=== PATIENT | male | born 1970 | race Caucasian/White ===

== ENCOUNTER 2017-03-30 10:52 | Emergency (ER) | payer OTHER ==
--- NOTE | 2017-03-30 13:26 | RAD ---
INDICATION: Left ankle swelling COMPARISON: None TECHNIQUE: 105 noncontrast axial source images were acquired with coronal and sagittal reconstructions FINDINGS: There are no acute osseous findings. There is a tiny, corticated, ossific or calcific density in the anterior soft tissues at the end of the mid leg believed to be incidental or related to an old injury. The articular relationships are maintained. There is mild diffuse soft tissue swelling of the anterior lower leg extending from the mid diaphysis through the ankle mortise. Edema is subcutaneous in location. There is no organized hematoma. There is no localized fluid collection. IMPRESSION: ANTERIOR LOWER EXTREMITY SUBCUTANEOUS EDEMA
--- NOTE | 2017-03-30 14:23 | RAD ---
INDICATION: Red and swollen right leg. Cellulitis. COMPARISON: CT lower extremity same date TECHNIQUE: Duplex interrogation of the right lowerextremity was performed. FINDINGS: Deep veins: The common femoral, great saphenous, profunda femoris, proximal, mid, and distal deep femoral, popliteal, posterior tibial, and peroneal veins are patent. There is normal compressibility, augmentation, and phasic flow. Superficial veins: There are no findings of superficial thrombophlebitis. Popliteal fossa:There is no evidence of a popliteal cyst. Soft tissues:There are no soft tissue abnormalities. IMPRESSION: No evidence of deep venous thrombosis
[2017-03-30 14:42] VITALS: BP 142/65
--- NOTE | 2017-03-30 18:03 | ED ---
Lower Extremity - HPI Summary HPI Summary: Patient presents to the ED with right lower extremity pain, erythema, warmth and was observed to be a deformity. He sustained an injury to the right upper pina 5 days ago and 3 days ago began to have swelling and other symptoms present today. The pain is not discretely located over where he initially incurred the injury. Patient has not been to a PCP for quite some time, so he comes to the ED for evaluation. He was ambulating well immediately following the injury, but is increasingly having a difficult time ambulating due to pain in the right anterior lower leg with involvement into the foot. He denies edema at baseline. Denies fever, sweats, chills. The area to the right lower extremity is exquisitely tender to the touch. - History of Current Complaint Chief Complaint: EDExtremityLower Stated Complaint: RT ANKLE SWELLING Time Seen by Provider: 03/30/17 11:23 Hx Obtained From: Patient Mechanism Of Injury: Direct Blow Onset of Pain: Minutes Onset/Duration: Days Severity Initially: Moderate Severity Currently: Moderate Pain Intensity: 7 Pain Scale Used: 0-10 Numeric Timing: Constant Location: Is Discrete @ - Right anterior lower leg right anterior lower leg Associated Signs And Symptoms: Positive: Swelling, Redness. Negative: Knee Pain Aggravating Factor(s): Standing, Ambulation Alleviating Factor(s): Rest, Elevation Able to Bear Weight: Yes - Risk Factors Gout Risk Factors: Negative DVT Risk Factors: Negative Septic Arthritis Risk Factor: Negative - Allergies/Home Medications Allergies/Adverse Reactions: Allergies Allergy/AdvReac Type Severity Reaction Status Date / Time No Known Allergies Allergy Verified 03/30/17 10:55 PMH/Surg Hx/FS Hx/Imm Hx Previously Healthy: Yes - Immunization History Date of Influenza Vaccine: 11/2016 Immunizations Up to Date: Yes Infectious Disease History: No Infectious Disease History: Denies: Traveled Outside the [place] in Last 30 Days - Social History Alcohol Use: None Substance Use Type: Reports: None Smoking Status (MU): Heavy Every Day Tobacco Smoker Review of Systems Constitutional: Negative Negative: Fever, Chills, Fatigue, Skin Diaphoresis Eyes: Negative Cardiovascular: Negative Respiratory: Negative Genitourinary: Negative Positive: no symptoms reported, see HPI Positive: Arthralgia Positive: Other - erythematous warm right lower extremity with +2 edema and diffuse swelling of the ankle and foot Neurological: Negative Psychological: Normal All Other Systems Reviewed And Are Negative: Yes Physical Exam Triage Information Reviewed: Yes Vital Signs On Initial Exam: Initial Vitals Temp Pulse Resp BP Pulse Ox 98.2 F 73 16 130/110 96 03/30/17 10:55 03/30/17 10:55 03/30/17 10:55 03/30/17 10:55 03/30/17 10:55 Vital Signs Reviewed: Yes Appearance: Positive: Well-Appearing, Well-Nourished Skin: Positive: Warm, Skin Color Reflects Adequate Perfusion, Other - See above Head/Face: Positive: Normal Head/Face Inspection Eyes: Positive: EOMI, VAN, Conjunctiva Clear Respiratory/Lung Sounds: Positive: Clear to Auscultation, Breath Sounds Present Cardiovascular: Positive: Normal, Pulses are Symmetrical in both Upper and Lower Extremities Musculoskeletal: Positive: Strength/ROM Intact, Pain @ - Right lower extremity, Edema Right. Negative: Fili Sign Left, Flii Sign Right Neurological: Positive: Speech Normal Psychiatric: Positive: Normal, Affect/Mood Appropriate Diagnostics - Vital Signs Vital Signs Temp Pulse Resp BP Pulse Ox 03/30/17 14:34 98.4 F 66 20 142/65 99 03/30/17 10:55 98.2 F 73 16 130/110 96 - Laboratory Lab Statement: Any lab studies that have been ordered have been reviewed, and results considered in the medical decision making process. Lower Extremity Course/Dx - Course Course Of Treatment: Patient is evaluated for right lower extremity erythema, warmth, exquisitely tender to the touch and difficulty ambulating. Considered compartment syndrome, but skin is not taut, no paresthesias to suggest ischemic nerve dysfunction. Pain with passive stretch of the muscle is not found. There is no firm feeling in the leg. There is no weakness, paralysis, or diminished sensation. The leg is observed to be erythematous and not pallorous. CT obtained to visualize fracture and osteomyelitis. IMPRESSION: ANTERIOR LOWER EXTREMITY SUBCUTANEOUS EDEMA. I have asked Dr. Gardner to see the patient as well. He suggests ultrasound to rule out DVT. DVT obtained and negative. I believe the right lower leg is cellulitic based on physical exam findings and exquisite tenderness with +2 edema. Pulses +2 bilaterally. He is given Keflex 500 mg 4 times daily 7 days. He is to elevate the leg as much as possible and ice. He is to take the next few days off from work, and agrees with this plan. He voices no other concerns. I have given him strict return precautions for worsening infection and have discussed the signs of worsening cellulitis. - Diagnoses Provider Diagnoses: Cellulitis of right lower leg Discharge - Discharge Plan Condition: Stable Disposition: HOME Prescriptions: Cephalexin CAP* [Keflex CAP*] 500 mg PO QID #28 cap MDD 4 traMADol TAB* [Ultram*] 50 mg PO Q8H PRN #9 tab MDD 3 PRN Reason: Pain Patient Education Materials: Cellulitis (ED) Referrals: Shahriar Manzanares MD [Primary Care Provider] - Additional Instructions: Elevate the leg as much as possible Ice to the leg 4-5 times per day for the next 5 days Ibuprofen 600 mg 3 times daily for inflammation Tramadol 50 mg 3 times daily for pain control Take these intermittently or on opposite schedule Follow-up with your PCP if symptoms fail to improve within 2-3 days Keflex 4 times a day 7 days for cellulitis If any symptoms become worse, or the leg becomes more swollen, you need to return to the ED immediately
== END 2017-03-30 14:34 | disposition home or self-care (01) ==
LOC: ED 10:52
DX: L03.115 Cellulitis of right lower limb (principal); Z72.0 Tobacco use
CPT/HCPCS: 99281

== ENCOUNTER 2018-05-05 18:56 | Emergency (ER) | payer OTHER ==
[2018-05-05] MEDS ORDERED: Indomethacin CAP* 25 MG CAP PO ONE (20:24)
[2018-05-05] MEDS ORDERED: oxyCODONE/Acetamin 5/325 MG* TAB PO ONE (20:24)
--- NOTE | 2018-05-05 20:29 | ED ---
Lower Extremity - HPI Summary HPI Summary: Pt is a 47 y/o M presenting to the ED with a chief complaint of LE pain onset 05/02/18 that has gradually gotten worse. The pt denies any trauma, and states he has had pain like this in his other ankle but it was dxed as cellulitis. The pain became worse today and his doctor instructed him to come here. The pt denies fever. - History of Current Complaint Chief Complaint: EDExtremityLower Stated Complaint: LT ANKLE SWOLLEN AND PAIN PER PT Time Seen by Provider: 05/05/18 20:14 Hx Obtained From: Patient Mechanism Of Injury: Unknown Onset of Pain: Days Onset/Duration: Still Present Severity Initially: Moderate Severity Currently: Moderate Pain Intensity: 5 Pain Scale Used: 0-10 Numeric Timing: Constant Location: Is Discrete @ - L ankle Character Of Pain: Aching Associated Signs And Symptoms: Positive: Swelling, Redness. Negative: Fever Aggravating Factor(s): Standing, Ambulation, Movement, Weight Bearing Alleviating Factor(s): Rest Able to Bear Weight: No - Allergies/Home Medications Allergies/Adverse Reactions: Allergies Allergy/AdvReac Type Severity Reaction Status Date / Time No Known Allergies Allergy Verified 05/05/18 18:58 PMH/Surg Hx/FS Hx/Imm Hx Previously Healthy: Yes Endocrine/Hematology History: Denies: Hx Diabetes Cardiovascular History: Denies: Hx Myocardial Infarction - Immunization History Date of Influenza Vaccine: 11/2016 Infectious Disease History: No Infectious Disease History: Denies: Traveled Outside the [place] in Last 30 Days - Family History Known Family History: Negative: Respiratory Disease - Social History Alcohol Use: None Hx Substance Use: No Substance Use Type: Reports: None Hx Tobacco Use: Yes Smoking Status (MU): Heavy Every Day Tobacco Smoker Review of Systems Negative: Fever Positive: Arthralgia, Decreased ROM - L ankle, Edema All Other Systems Reviewed And Are Negative: Yes Physical Exam - Summary Physical Exam Summary: VITAL SIGNS: Reviewed. GENERAL: Patient is a well-developed and nourished male who is lying comfortable in the stretcher. Patient is not in any acute respiratory distress. HEAD AND FACE: No signs of trauma. No ecchymosis, hematomas or skull depressions. No sinus tenderness. EYES: PERRLA, EOMI x 2, No injected conjunctiva, no nystagmus. EARS: Hearing grossly intact. Ear canals and tympanic membranes are within normal limits. MOUTH: Oropharynx within normal limits. NECK: Supple, trachea is midline, no adenopathy, no JVD, no carotid bruit, no c- spine tenderness, neck with full ROM. CHEST: Symmetric, no tenderness at palpation LUNGS: Clear to auscultation bilaterally. No wheezing or crackles. CVS: Regular rate and rhythm, S1 and S2 present, no murmurs or gallops appreciated. ABDOMEN: Soft, non-tender. No signs of distention. No rebound no guarding, and no masses palpated. Bowel sounds are normal. EXTREMITIES: L ankle tenderness, edema, and erythema. Pain with L ankle movement. Tenderness over L mid-foot. NEURO: Alert and oriented x 3. No acute neurological deficits. Speech is normal and follows commands. SKIN: Dry and warm Triage Information Reviewed: Yes Vital Signs On Initial Exam: Initial Vitals Temp Pulse Resp BP Pulse Ox 97.9 F 78 16 161/85 94 05/05/18 18:58 05/05/18 18:58 05/05/18 18:58 05/05/18 18:58 05/05/18 18:58 Vital Signs Reviewed: Yes Diagnostics - Vital Signs Vital Signs Temp Pulse Resp BP Pulse Ox 05/05/18 18:58 97.9 F 78 16 161/85 94 - Laboratory Lab Statement: Any lab studies that have been ordered have been reviewed, and results considered in the medical decision making process. Lower Extremity Course/Dx - Course Course Of Treatment: Pt is a 47 y/o M presenting to the ED with a chief complaint of LE pain onset 05/02/18 that has gradually gotten worse. The pt denies any trauma, and states he has had pain like this in his other ankle but it was dxed as cellulitis. The pt denies fever. The pt has L ankle edema, erythema, and tenderness, as well as pain with movement. The pt will be discharged with a dx of gouty arthritis, and he is agreeable with this plan. - Diagnoses Provider Diagnoses: Gouty arthritis Discharge - Sign-Out/Discharge Documenting (check all that apply): Patient Departure Patient Received Moderate/Deep Sedation with Procedure: No - Discharge Plan Condition: Stable Disposition: HOME Patient Education Materials: Gout (ED) Referrals: Shahriar Manzanares MD [Primary Care Provider] - Additional Instructions: Please take your prescribed medications as instructed. Return to the emergency department with any new or worsening symptoms. Follow up with your primary care provider in the next 1-2 days. - Attestation Statements Document Initiated by Ana: Yes Documenting Scribe: Beatriz Cooper Provider For Whom Ana is Documenting (Include Credential): Billy Lynch MD. Scribe Attestation: Beatriz Lyn, scribed for Billy Lynch MD. on 05/05/18 at 2028. Status of Scribe Document: Ready
[2018-05-05 21:24] VITALS: BP 156/100
== END 2018-05-05 21:23 | disposition home or self-care (01) ==
LOC: ED 18:56
DX: M10.072 Idiopathic gout, left ankle and foot (principal); F17.210 Nicotine dependence, cigarettes, uncomplicated; R60.9 Edema, unspecified
CPT/HCPCS: 99282; A9270-GY

== ENCOUNTER 2019-06-10 20:15 | Emergency (ER) | payer OTHER ==
[2019-06-10] MEDS ORDERED: NS 0.9% 1000 ML** 2,000 ML IV ONE (20:32)
[2019-06-10] MEDS ORDERED: Morphine 4 MG/ML VIAL (1 ml) 4 MG/ML VIAL IV ONE (20:32)
[2019-06-10] MEDS ORDERED: Ondansetron INJ* 2 MG/ML VIAL IV ONE (20:32)
[2019-06-10] MEDS ORDERED: Ketorolac INJ* 15 MG/ML 1 ML VIAL IV ONE (20:32)
--- NOTE | 2019-06-10 20:39 | ED ---
Abdominal Pain/Male - HPI Summary HPI Summary: 49-year-old male with a significant past medical history of gout presents to the emergency department today complaining of 10 out of 10 right lower quadrant pain which he describes as sharp which radiates to his back and groin which he has had for approximately 4 hours which began with a sudden onset due to an unknown cause. Patient has associated nausea and vomiting but denies fever. Patient denies personal or family history of gallstones or kidney stones. No modifying factors. Patient has not taken any medication prior to arrival for alleviation of his symptoms. Patient denies fever, chest pain, shortness of breath, rash, diarrhea, pain with urination. Patient denies recent recreational drug use or alcohol use. - History of Current Complaint Chief Complaint: EDAbdPain Stated Complaint: ABD/BACK PAIN PER PT Time Seen by Provider: 06/10/19 20:24 Hx Obtained From: Patient Onset/Duration: Sudden Onset, Lasting Hours Timing: Constant Severity Initially: Severe Severity Currently: Severe Pain Intensity: 8 Pain Scale Used: 0-10 Numeric Location: Discrete At: RLQ Radiates: Yes Radiates to: Back, Inguinal Character: Sharp, Cramping Aggravating Factor(s): Nothing Alleviating Factor(s): Nothing Associated Signs And Symptoms: Positive: Back Pain, Nausea, Vomiting. Negative : Diaphoresis, Fever, Cough, Chest Pain, Constipation, Blood in Stool, Urinary Symptoms, Decreased Appetite, Diarrhea, Penile Discharge - Allergies/Home Medications Allergies/Adverse Reactions: Allergies Allergy/AdvReac Type Severity Reaction Status Date / Time No Known Allergies Allergy Verified 06/10/19 20:19 Home Medications: Home Medications Ondansetron ODT TAB* [Zofran 4 MG Odt TAB*] 4 mg PO Q6H PRN #20 tab.odt [Rx] Tamsulosin CAP* [Flomax CAP*] 0.4 mg PO BID #10 cap 06/10/19 [Rx] oxyCODONE/Acetamin 5/325 MG* [Percocet 5/325 TAB*] 1 tab PO Q6H PRN #15 tab MDD 4 06/10/19 [Rx] PMH/Surg Hx/FS Hx/Imm Hx Endocrine/Hematology History: Denies: Hx Diabetes Cardiovascular History: Denies: Hx Myocardial Infarction - Immunization History Date of Tetanus Vaccine: unknown Date of Influenza Vaccine: UTD Infectious Disease History: No Infectious Disease History: Denies: Traveled Outside the [place] in Last 30 Days - Family History Known Family History: Negative: Respiratory Disease - Social History Alcohol Use: None Hx Substance Use: No Substance Use Type: Reports: None Hx Tobacco Use: Yes Smoking Status (MU): Heavy Every Day Tobacco Smoker Review of Systems Constitutional: Negative Eyes: Negative ENT: Negative Cardiovascular: Negative Respiratory: Negative Positive: Abdominal Pain, Vomiting, Nausea. Negative: Diarrhea Genitourinary: Negative Musculoskeletal: Negative Skin: Negative Neurological/Mental Status: Negative Psychological: Normal All Other Systems Reviewed And Are Negative: Yes Physical Exam - Summary Physical Exam Summary: Patient appears to be in pain distress. Inspection of the abdomen reveals no ecchymosis or masses. Auscultation reveals normoactive bowel sounds. Negative Arthur's sign. Patient has pain with palpation of the right lower quadrant. No CVA tenderness bilaterally. Negative psoas, Rovsing, obturator sign. Patient is unable to be comfortable on the hospital stretcher and prefers to stand and paced around the room. Physical exam appears consistent with possible kidney stone. Triage Information Reviewed: Yes Vital Signs On Initial Exam: Initial Vitals Temp Pulse Resp BP Pulse Ox 97.5 F 58 16 192/79 97 06/10/19 20:15 06/10/19 20:15 06/10/19 20:15 06/10/19 20:15 06/10/19 20:15 Vital Signs Reviewed: Yes Appearance: Positive: Well-Appearing, Well-Nourished, Pain Distress Skin: Positive: Warm, Skin Color Reflects Adequate Perfusion Eyes: Positive: EOMI, VAN ENT: Positive: Hearing grossly normal Respiratory/Lung Sounds: Positive: Clear to Auscultation, Breath Sounds Present Cardiovascular: Positive: RRR, S1, S2 Abdomen Description: Positive: Soft. Negative: Nontender, CVA Tenderness (R), CVA Tenderness (L), Distended, Guarding Bowel Sounds: Positive: Present Musculoskeletal: Positive: Strength/ROM Intact Neurological: Positive: Sensory/Motor Intact, Alert, Oriented to Person Place, Time, Normal Gait, Facial Symmetry, Speech Normal Psychiatric: Positive: Normal, Affect/Mood Appropriate AVPU Assessment: Alert Procedures - Sedation Patient Received Moderate/Deep Sedation with Procedure: No Diagnostics - Vital Signs Vital Signs Temp Pulse Resp BP Pulse Ox 06/10/19 20:15 97.5 F 58 16 192/79 97 - Laboratory Result Diagrams: 06/10/19 21:11 06/10/19 21:11 Lab Statement: Any lab studies that have been ordered have been reviewed, and results considered in the medical decision making process. Abdominal Pain Male Course/Dx - Course Course Of Treatment: Patient was evaluated in the emergency department today for right lower quadrant pain which radiates to his flank and groin. Vitals noted and stable. Patient afebrile. Patient was given IV fluids, Toradol, morphine, Zofran for assumed kidney stone. Labs returned showing white blood cell count 18.5 with a left shift. There are no significant electronic disturbances. No evidence of anemia. CT of the abdomen pelvis show mild right hydronephrosis with 2 mm nephrolithiasis in the distal right ureter just above the right UP junction. This stone will likely pass on its own. No evidence of pyelonephritis. Patient was given prescription for Zofran, Percocet, tamsulosin and instructed to take ibuprofen for pain. Patient discharged to outpatient follow-up with urology. - Diagnoses Differential Diagnosis/HQI/PQRI: Appendicitis, Constipation, Gall Bladder Disease, Renal Colic, Ureteral Stone Provider Diagnoses: Kidney stone Discharge ED - Sign-Out/Discharge Documenting (check all that apply): Patient Departure - Discharge Plan Condition: Stable Disposition: HOME Prescriptions: Ondansetron ODT TAB* [Zofran 4 MG Odt TAB*] 4 mg PO Q6H PRN #20 tab.odt PRN Reason: Nausea oxyCODONE/Acetamin 5/325 MG* [Percocet 5/325 TAB*] 1 tab PO Q6H PRN #15 tab MDD 4 PRN Reason: Pain - Severe Tamsulosin CAP* [Flomax CAP*] 0.4 mg PO BID #10 cap Patient Education Materials: Kidney Stones (ED) Referrals: Jd Duggan MD [Medical Doctor] - 3 Days Additional Instructions: You were diagnosed with a kidney stone today in the emergency department. This is a small 2 mm stone on the right which will likely pass on its own. Please take the medications I sent to the pharmacy as directed. Ibuprofen 600 mg every 6 hours as needed for pain. Percocet every 6 hours as needed for pain not able to be controlled with ibuprofen. Zofran every 6 hours as needed for nausea. Tamsulosin twice daily to help stone pass. Please be sure to maintain adequate hydration which will aid with stone passage. Please return to this emergency department immediately should you develop any new or worsening symptoms such as intractable vomiting, fever, increased pain. Please follow up with urology in 3-5 days for further evaluation and management. - Billing Disposition and Condition Condition: STABLE Disposition: Home - Attestation Statements Provider Attestation: I was available for consult. This patient was seen by the JOSSE. The patient was not presented to, seen by, or examined by me. Ramakrishna Tao MD
[2019-06-10 21:18] LABS: ABS Basophils 0.1 10^3/ul (0-0.2); ABS Lymphocytes 1.5 10^3/ul (1.0-4.8); ABS Monocytes 0.5 10^3/ul (0-0.8); ABS Neutrophils 16.3 10^3/ul (1.5-7.7); Eosinophil % 0.1 %; Hematocrit 47 % (42-52); Hemoglobin 16.1 g/dL (14.0-18.0); Lymphocyte % 8.3 %; Mean Corpuscular HGB Conc 34 g/dL (31-36); Mean Corpuscular Hemoglobin 30 pg (27-31); Mean Corpuscular Volume 89 fL (80-94); Nucleated Red Blood Cells % 0.1; Platelet Count 291 10^3/uL (150-450); Red Cell Distribution Width 14 % (10-15); White Blood Count 18.5 10^3/uL (3.5-10.8)
[2019-06-10 21:37] LABS: Albumin 4.4 g/dL (3.2-5.2); Albumin/Globulin Ratio 1.4 (1-3); BUN/Creatinine Ratio 15.9 (8-20); C Reactive Protein 6.32 mg/L (<8.01); Calcium 9.6 mg/dL (8.6-10.3); EGFR African American 88.2 (>60); EGFR Non-African American 72.9 (>60); Globulin 3.1 g/dL (2-4); Potassium 3.9 mmol/L (3.5-5.0); Total Bilirubin 0.4 mg/dL (0.2-1.0); Total Protein 7.5 g/dL (6.4-8.9)
[2019-06-10] MEDS ORDERED: Tamsulosin CAP* 0.4 MG PO ONE (22:09)
[2019-06-10] MEDS ORDERED: oxyCODONE/Acetamin 5/325 MG* TAB PO ONE (22:16)
[2019-06-10 22:33] VITALS: BP 161/77
== END 2019-06-10 22:33 | disposition home or self-care (01) ==
LOC: ED 20:15
DX: N20.0 Calculus of kidney (principal); M54.9 Dorsalgia, unspecified; R11.2 Nausea with vomiting, unspecified; F17.210 Nicotine dependence, cigarettes, uncomplicated; R10.9 Unspecified abdominal pain
CPT/HCPCS: 36415; 74176; 80053; 83690; 85025; 86140; 96374; 96375; 99284; A9270-GY; J1885; J2270; J2405